=== PATIENT | female | born 2000 | race African-American/Black ===

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

== ENCOUNTER 2021-04-08 15:05 | Emergency (ER) | payer OTHER ==
[2021-04-08] MEDS ORDERED: Boostrix 0.5 ML (Tdap) VIAL ONE (16:06)
[2021-04-08] MEDS ORDERED: Ketorolac Tromethamine 30 MG/ML VIAL ONE (16:06)
== END 2021-04-08 16:50 | disposition home or self-care (01) ==
LOC: ERS 15:05
DX: S40.022A Contusion of left upper arm, initial encounter (principal); S00.81XA Abrasion of other part of head, initial encounter; F17.210 Nicotine dependence, cigarettes, uncomplicated; V49.9XXA Car occupant (driver) (passenger) injured in unspecified traffic accident, initial encounter
CPT/HCPCS: 90471; 90715; 96372; J1885